=== PATIENT | female | born 1980 | race American Indian/Alaskan Native ===

== ENCOUNTER 2017-06-02 15:03 | Observation (INO) | payer MEDICAID, OTHER ==
[2017-06-02 15:40] LABS: BASO # 0.1 K/uL (0.0-0.2); BASO % 0.9 % (0.0-2.0); EOS # 0.1 K/uL (0.0-0.7); EOS % 1.5 % (0.0-4.0); HEMOGLOBIN 12.7 g/dL (11.0-16.0); LYMPH # 4.2 K/uL (1.0-4.3); LYMPH % 47.7 % (20.0-40.0); MEAN CELL VOLUME 81.8 fL (81.0-99.0); MEAN CORPUSCULAR HEMOGLOBIN 27.5 pg (27.0-31.0); MEAN CORPUSCULAR HGB CONC 33.6 g/dL (33.0-37.0); MEAN PLATELET VOLUME 8.4 fL (7.2-11.7); MONO # 0.7 K/uL (0.0-0.8); MONO % 7.5 % (0.0-10.0); NEUT # 3.7 K/uL (1.8-7.0); NEUT % 42.4 % (50.0-75.0); NRBC % 0.1 % (0.0-2.0); RBC 4.63 Mil/uL (3.80-5.20); RED CELL DISTRIBUTION WIDTH 14.5 % (11.5-14.5); WHITE BLOOD COUNT 8.8 K/uL (4.8-10.8)
[2017-06-02 16:07] LABS: ALB/GLOB RATIO 0.9 (1.0-2.1); ALBUMIN 4.4 g/dL (3.5-5.0); ALT/SGPT 32 U/L (9-52); AST/SGOT 30 U/L (14-36); BLOOD UREA NITROGEN 12 mg/dL (7-17); CALCIUM 8.7 mg/dl (8.6-10.4); GFR AFRICAN-AMERICAN > 60; GFR NON-AFRICAN AMERICAN > 60
[2017-06-02 16:30] LABS: T3 1.72 nmol/L (1.49-2.60)
--- NOTE | 2017-06-02 17:07 | RAD ---
PROCEDURE: CHEST RADIOGRAPH, 1 VIEW HISTORY: chest pain COMPARISON: No prior study for comparison FINDINGS: LUNGS: No evidence of focal infiltrate or consolidation in the lungs. PLEURA: No pneumothorax or pleural fluid seen. CARDIOVASCULAR: Normal. OSSEOUS STRUCTURES: No significant abnormalities. VISUALIZED UPPER ABDOMEN: Normal. OTHER FINDINGS: None. IMPRESSION: No active disease.
--- NOTE | 2017-06-02 17:36 | PCM.RRT ---
<ApolloJaqueline - Last Filed: 06/02/17 17:30> DESIGN COORDINATOR Nurses Assessment - Situation Date: 06/02/17 Time DESIGN COORDINATOR was called: 12:50 DESIGN COORDINATOR Location:: I ICU DESIGN COORDINATOR Reason for Call: Looks Sicker DESIGN COORDINATOR Called By: RN - IV IV Inserted during DESIGN COORDINATOR?: No - Constitutional Appears: Non-toxic, In Acute Distress - Head Head Exam: ATRAUMATIC, NORMAL INSPECTION - Eyes Eye Exam: EOMI - Respiratory Exam Respiratory Exam: Clear to Ausculation Bilateral, NORMAL BREATHING PATTERN. absent: Respiratory Distress - Cardiovascular Exam Cardiovascular Exam: Tachycardia, JVD, +S1, +S2 - GI/Abdominal Exam GI & Abdominal Exam: Soft, Normal Bowel Sounds. absent: Distended, Guarding, Tenderness - Neurological Exam Neurological Exam: Alert, Awake, CN II-XII Intact, Oriented x3 - Extremities Exam Extremities Exam: Normal Inspection Plan - Assessment of Findings&Treatment Plan DESIGN COORDINATOR called at 12:50 PM. 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 She walked into the ICU and told Nurse Santamaria that she did not feel well. Nurse Santamaria felt the patient's pulse and noticed the patient had a very rapid heart rate. DESIGN COORDINATOR was called and the patients HR was taken on the vitals machine and was 210. O2 saturation was 98%. Patient was awake alert and speaking in full sentences. She stated that she felt like she was going to pass out but denied SOB or chest pain. She felt like her heart was racing. Patient was put in a wheel chair and we immediately took to the ED. Patient stated she ate that morning and took her Insulin. She said that she had a episode of a fast heart rate 6 years ago when she was . Upon arrival to the ED, EKG was performed and patient was in SVT. Adenosine was administered and the patient converted to NSR. <Jose Boles - Last Filed: 06/03/17 07:10> Attending/Attestation - Attestation I have personally seen and examined this patient.: Yes I have fully participated in the care of the patient.: Yes I have reviewed all pertinent clinical information, including history, physical exam and plan: Yes Notes (Text): 06/03/17 07:08 Medical attending: Patient was seen and examined by me. Agree with the above note by the resident The patient was already being moved to the ER at the time I came to the ICU. She was alert, awake, and appropriate. Her HR was elevated, and she tells us there is a history of SVT And while at ER she received adenosine thank you Jose Boles
[2017-06-02] MEDS ORDERED: Glucagon Recombinant 1 mg Inj IM PRN (17:38)
[2017-06-02] MEDS ORDERED: Dextrose 50% SYRINGE Inj (50 ml) IV PRN (17:38)
[2017-06-02 18:09] VITALS: O2SAT 98
--- NOTE | 2017-06-02 18:09 | C.PDOC ---
History Of Present Illness 37 y/o female hx 6 years ago of SVT and since then occasional palpations. The patient works in [employer] presents to the ED of rapid response for rapid heart rate. While in the ED the patient is found with SVT. The patient was evaluated by a transformation coach in the past and refused any intervention. The patient denies headaches , chest pain , SOB, and dizziness. Chief Complaint (Nursing): Palpitations History Per: Patient History/Exam Limitations: no limitations Onset/Duration Of Symptoms: Hrs Current Symptoms Are (Timing): Still Present Past Medical History Reviewed: Historical Data, Nursing Documentation, Vital Signs Vital Signs: Last Vital Signs Temp Pulse 108 H 06/02/17 18:00 Resp 14 06/02/17 18:00 BP 133/82 06/02/17 18:00 Pulse Ox 98 06/02/17 18:22 Surgical History: No Surg Hx - [facility] Procedures D & C POST DELIVERY (11/01/12) Family History: States: No Known Family Hx - Social History Hx Alcohol Use: No Hx Substance Use: No - Immunization History Hx Tetanus Toxoid Vaccination: Yes Hx Influenza Vaccination: Yes Hx Pneumococcal Vaccination: Yes Review Of Systems Except As Marked, All Systems Reviewed And Found Negative. Constitutional: Negative for: Fever Cardiovascular: Positive for: Palpitations. Negative for: Chest Pain Respiratory: Negative for: Cough, Shortness of Breath Physical Exam - Physical Exam Appears: Non-toxic, No Acute Distress, Other Skin: Warm, Dry Head: Atraumatic, Normacephalic Eye(s): bilateral: Normal Inspection Oral Mucosa: Moist Neck: Supple Chest: Symmetrical Cardiovascular: Rhythm Irregular, Other (tachycardic) Respiratory: Normal Breath Sounds, No Rales, No Rhonchi, No Wheezing Gastrointestinal/Abdominal: Soft, No Tenderness, No Guarding, No Rebound Extremity: Normal ROM, Capillary Refill (2<sec.) Neurological/Psych: Oriented x3, Normal Speech Gait: Steady ED Course And Treatment - Laboratory Results Result Diagrams: 06/02/17 15:34 06/02/17 15:34 O2 Sat by Pulse Oximetry: 98 (RA) Progress Note: SVT resolved with second dose of Adenosine. Critical care done for 30 minutes. The patient no longer feels any palpation. The patient is advised to have 1-2 day follow up with her PMD for further evaluation. Medical Decision Making Medical Decision Making: Impression: No active disease. Disposition - Disposition Disposition: HOSPITALIZED Disposition Time: 16:40 Condition: FAIR - Clinical Impression Clinical Impression: SVT (supraventricular tachycardia) - Scribe Statement The provider has reviewed the documentation as recorded by the Scribsofy Montez
[2017-06-02] MEDS ORDERED: Potassium Chloride 20 mEq ER Tab PO STA (18:39)
--- NOTE | 2017-06-02 18:43 | CP.PCM.HP ---
History of Present Illness - History of Present Illness History of Present Illness: PGY1 H+P for Dr. Swapnil Arrieta Patient is a 37 year old female with a past medical history of diabetes type 2 on insulin and possible hx of SVT. 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 She was walking in the [place] when she felt her heart to race and she felt like she was going to pass out. She walked into the ICU and told the charge nurse, Hina, that she was not feeling well. Upon feeling the pulse, Hina noticed that the patient had a very accelerated heart rate. An TABLE ATTENDANT was called and the patient was placed on a vital machine monitor. It was discovered that her HR was 210+. Patient was taken directly to ED for further evaluation. During the ED stay, it was discovered that the patient was in SVT. Patient was given 6mg of Adenosine followed by a second dose of 12mg. This caused the rhythm to convert to NSR in the low 100's. The patient stated that this has happened in the past. The first time was approximately 6 years ago when she was . The patient reports that she gets palpitations often but is normally able to take a deep breath and the feeling goes away. This is the longest it has lasted since the first time she noticed 6 years ago. The patient denies any associated chest pain, nausea, vomiting, numbness, tingling, muscle weakness, slurred speech, diarrhea, constipation or abdominal pain. The patient does report that she has a history of headaches and has been having bad headaches the past three to two days. She also states that her vision is has been blurry at times during these intense headaches. The last time she went to see the eye doctor was approximately one year ago and she was told she has 20/20 vision. She does not currently have either a headache or blurry vision. PMD: [place] PMH: IDDM2 and possible hx of SVT PSH: C section x1 Family: hx of DM (father) Social: Denies tobacco, alcohol or illicit drug use Allergies: NKDA Present on Admission - Present on Admission Any Indicators Present on Admission: No Review of Systems - Review of Systems All systems: reviewed and no additional remarkable complaints except (as per HPI ) Past Patient History - Infectious Disease Hx of Infectious Diseases: None - Past Social History Smoking Status: Never Smoked - ENDOCRINE/METABOLIC Hx Diabetes Mellitus Type 1: Yes - PSYCHIATRIC Hx Substance Use: No - SURGICAL HISTORY Hx Surgeries: Yes Hx Section: Yes - ANESTHESIA Hx Anesthesia: No Hx Anesthesia Reactions: No Hx Malignant Hyperthermia: No Meds Allergies/Adverse Reactions: Allergies Allergy/AdvReac Type Severity Reaction Status Date / Time No Known Allergies Allergy Unverified 11/01/12 19:12 Physical Exam - Constitutional Appears: Well, Non-toxic, No Acute Distress - Head Exam Head Exam: ATRAUMATIC, NORMOCEPHALIC - Eye Exam Eye Exam: EOMI, Normal appearance, PERRL - ENT Exam ENT Exam: Mucous Membranes Moist - Neck Exam Neck exam: Positive for: Full Rom, Normal Inspection. Negative for: Tenderness - Respiratory Exam Respiratory Exam: Clear to Auscultation Bilateral, NORMAL BREATHING PATTERN. absent: Accessory Muscle Use, Rales, Rhonchi, Wheezes, Respiratory Distress - Cardiovascular Exam Cardiovascular Exam: REGULAR RHYTHM, +S1. absent: JVD - GI/Abdominal Exam GI & Abdominal Exam: Normal Bowel Sounds, Soft. absent: Distended, Firm, Guarding, Rigid, Tenderness - Extremities Exam Extremities exam: Positive for: normal inspection, pedal pulses present. Negative for: calf tenderness, pedal edema - Neurological Exam Neurological exam: Alert, CN II-XII Intact, Oriented x3 - Psychiatric Exam Psychiatric exam: Normal Affect, Normal Mood - Skin Skin Exam: Dry, Warm Results - Vital Signs Recent Vital Signs: Last Vital Signs Temp Pulse 108 H 06/02/17 18:00 Resp 14 06/02/17 18:00 BP 133/82 06/02/17 18:00 Pulse Ox 98 06/02/17 18:13 - Labs Result Diagrams: 06/02/17 15:34 06/02/17 15:34 Labs: Laboratory Results - last 24 hr 06/02/17 06/02/17 06/02/17 15:26 15:28 15:34 WBC 8.8 D RBC 4.63 Hgb 12.7 Hct 37.9 MCV 81.8 D MCH 27.5 MCHC 33.6 RDW 14.5 Plt Count 353 D MPV 8.4 Neut % (Auto) 42.4 L Lymph % (Auto) 47.7 H [place] % (Auto) 7.5 Eos % (Auto) 1.5 Baso % (Auto) 0.9 Neut # 3.7 Lymph # 4.2 [place] # 0.7 Eos # 0.1 Baso # 0.1 Sodium Potassium Chloride Carbon Dioxide Anion Gap BUN Creatinine Est GFR ( Amer) Est GFR (Non-Af Amer) POC Glucose (mg/dL) 55 L 56 L Random Glucose Calcium Total Bilirubin AST ALT Alkaline Phosphatase Troponin I Total Protein Albumin Globulin Albumin/Globulin Ratio Free T4 Total T3 TSH 3rd Generation 06/02/17 06/02/17 06/02/17 15:34 15:47 16:21 WBC RBC Hgb Hct MCV MCH MCHC RDW Plt Count MPV Neut % (Auto) Lymph % (Auto) [place] % (Auto) Eos % (Auto) Baso % (Auto) Neut # Lymph # [place] # Eos # Baso # Sodium 135 Potassium 3.4 L Chloride 98 Carbon Dioxide 24 Anion Gap 16 BUN 12 Creatinine 0.6 L Est GFR ( Amer) > 60 Est GFR (Non-Af Amer) > 60 POC Glucose (mg/dL) 68 Random Glucose 61 L Calcium 8.7 Total Bilirubin 0.6 AST 30 ALT 32 Alkaline Phosphatase 101 Troponin I < 0.0120 Total Protein 9.2 H Albumin 4.4 Globulin 4.7 H Albumin/Globulin Ratio 0.9 L Free T4 0.98 Total T3 1.72 TSH 3rd Generation 1.28 06/02/17 16:23 WBC RBC Hgb Hct MCV MCH MCHC RDW Plt Count MPV Neut % (Auto) Lymph % (Auto) [place] % (Auto) Eos % (Auto) Baso % (Auto) Neut # Lymph # [place] # Eos # Baso # Sodium Potassium Chloride Carbon Dioxide Anion Gap BUN Creatinine Est GFR ( Amer) Est GFR (Non-Af Amer) POC Glucose (mg/dL) 78 Random Glucose Calcium Total Bilirubin AST ALT Alkaline Phosphatase Troponin I Total Protein Albumin Globulin Albumin/Globulin Ratio Free T4 Total T3 TSH 3rd Generation Assessment & Plan - Assessment and Plan (Free Text) Plan: SVT Cardiology Consult, Dr. Rodriguez SVT @ 210+ on monitor Patient given Adenosine 6mg then 12mg in ED - broke to NSR @110bpm f/u ECHO On telemetry Cardizem 30mg PO q6h TSH 1.28, Free T4 0.98, Total T3 1.72 Trop <0.012 f/u UDS Hypokalemia K 3.4 - repleted with 40mEq oral f/u mag and phos Diabetes Type 2 on insulin Metformin 1,000mg ISS - low Hold home long acting insulin (20 u HS) Hold pre-meal insulin (10 u Humalog TIDAC) Hypoglycemic Protocol f/u Hgb A1c f/u Lipid Panel Prophylactic Care SCDs No GI ppx indicated Mod. Carb Consistent Diet (Heart Healthy, 2gm Na) Case discussed with Dr. Swapnil Martinez Angie PGY1
[2017-06-02] MEDS: (Novolin R) Insulin Human Regular 100 units/ml vial SC SCH (21:55)
[2017-06-03] MEDS: (Novolin R) Insulin Human Regular 100 units/ml vial SC SCH ×2 (07:33→12:30)
[2017-06-03 07:49] LABS: BASO # 0.1 K/uL (0.0-0.2); EOS # 0.1 K/uL (0.0-0.7); EOS % 2.3 % (0.0-4.0); HEMOGLOBIN 12.6 g/dL (11.0-16.0); LYMPH # 1.8 K/uL (1.0-4.3); LYMPH % 36.9 % (20.0-40.0); MEAN CELL VOLUME 81.6 fL (81.0-99.0); MEAN CORPUSCULAR HEMOGLOBIN 27.7 pg (27.0-31.0); MEAN PLATELET VOLUME 8.1 fL (7.2-11.7); MONO # 0.3 K/uL (0.0-0.8); MONO % 7.1 % (0.0-10.0); NEUT # 2.5 K/uL (1.8-7.0); NEUT % 52.7 % (50.0-75.0); NRBC % 0.1 % (0.0-2.0); RBC 4.53 Mil/uL (3.80-5.20); RED CELL DISTRIBUTION WIDTH 14.5 % (11.5-14.5); WHITE BLOOD COUNT 4.8 K/uL (4.8-10.8)
[2017-06-03 08:37] LABS: ALB/GLOB RATIO 1.2 (1.0-2.1); ALBUMIN 3.8 g/dL (3.5-5.0); ALT/SGPT 27 U/L (9-52); AST/SGOT 19 U/L (14-36); BLOOD UREA NITROGEN 12 mg/dL (7-17); CALCIUM 8.3 mg/dl (8.6-10.4); GFR AFRICAN-AMERICAN > 60; GFR NON-AFRICAN AMERICAN > 60; HDL CHOLESTEROL 54 mg/dL (30-70); MAGNESIUM 1.4 mg/dL (1.6-2.3)
[2017-06-03 08:47] LABS: LDL CHOLESTEROL 112 mg/dL (0-129)
[2017-06-03 08:52] VITALS: BP 109/71; PULSE 84; RESP 18; TEMP 97.8
[2017-06-03 09:05] LABS: BARBITURATES, UR NEGATIVE (NEGATIVE); BENZODIAZEPINES, UR NEGATIVE (NEGATIVE); OPIATES, UR NEGATIVE (NEGATIVE); PHENCYCLIDINE, UR NEGATIVE (NEGATIVE)
[2017-06-03] MEDS: Magnesium Sulfate 1 gm in D5W 1 GM/100 ML BAG IVPB SCH ×2 (09:58→10:44)
--- NOTE | 2017-06-03 10:53 | CP.PCM.DIS ---
Provider - Provider Date of Admission: 06/02/17 17:06 Attending physician: Bronwyn Obando MD Primary care physician: Dr. Obando [facility] Course - Lab Results Lab Results: Most Recent Lab Values WBC 4.8 K/uL (4.8-10.8) 06/03/17 07:41 RBC 4.53 Mil/uL (3.80-5.20) 06/03/17 07:41 Hgb 12.6 g/dL (11.0-16.0) 06/03/17 07:41 Hct 37.0 % (34.0-47.0) 06/03/17 07:41 MCV 81.6 fL (81.0-99.0) 06/03/17 07:41 MCH 27.7 pg (27.0-31.0) 06/03/17 07:41 MCHC 34.0 g/dL (33.0-37.0) 06/03/17 07:41 RDW 14.5 % (11.5-14.5) 06/03/17 07:41 Plt Count 291 K/uL (130-400) 06/03/17 07:41 MPV 8.1 fL (7.2-11.7) 06/03/17 07:41 Neut % (Auto) 52.7 % (50.0-75.0) 06/03/17 07:41 Lymph % (Auto) 36.9 % (20.0-40.0) 06/03/17 07:41 [place] % (Auto) 7.1 % (0.0-10.0) 06/03/17 07:41 Eos % (Auto) 2.3 % (0.0-4.0) 06/03/17 07:41 Baso % (Auto) 1.0 % (0.0-2.0) 06/03/17 07:41 Neut # 2.5 K/uL (1.8-7.0) 06/03/17 07:41 Lymph # 1.8 K/uL (1.0-4.3) 06/03/17 07:41 [place] # 0.3 K/uL (0.0-0.8) 06/03/17 07:41 Eos # 0.1 K/uL (0.0-0.7) 06/03/17 07:41 Baso # 0.1 K/uL (0.0-0.2) 06/03/17 07:41 Sodium 133 mmol/L (132-148) 06/03/17 07:41 Potassium 4.1 mmol/L (3.6-5.2) 06/03/17 07:41 Chloride 101 mmol/L (98-107) 06/03/17 07:41 Carbon Dioxide 27 mmol/L (22-30) 06/03/17 07:41 Anion Gap 9 (10-20) L 06/03/17 07:41 BUN 12 mg/dL (7-17) 06/03/17 07:41 Creatinine 0.5 mg/dL (0.7-1.2) L 06/03/17 07:41 Est GFR ( Amer) > 60 06/03/17 07:41 Est GFR (Non-Af Amer) > 60 06/03/17 07:41 POC Glucose (mg/dL) 130 mg/dL (65-110) H 06/03/17 06:09 Random Glucose 148 mg/dL (65-105) H 06/03/17 07:41 Hemoglobin A1c 6.8 % (4.2-6.5) H 06/02/17 17:20 Calcium 8.3 mg/dl (8.6-10.4) L 06/03/17 07:41 Phosphorus 3.0 mg/dL (2.5-4.5) 06/03/17 07:41 Magnesium 1.4 mg/dL (1.6-2.3) L 06/03/17 07:41 Total Bilirubin 0.4 mg/dL (0.2-1.3) 06/03/17 07:41 AST 19 U/L (14-36) 06/03/17 07:41 ALT 27 U/L (9-52) 06/03/17 07:41 Alkaline Phosphatase 101 U/L (38-126) 06/03/17 07:41 Troponin I < 0.0120 ng/mL (0.00-0.120) 06/02/17 15:34 Total Protein 7.0 g/dL (6.3-8.3) 06/03/17 07:41 Albumin 3.8 g/dL (3.5-5.0) 06/03/17 07:41 Globulin 3.2 gm/dL (2.2-3.9) 06/03/17 07:41 Albumin/Globulin Ratio 1.2 (1.0-2.1) 06/03/17 07:41 Triglycerides 103 mg/dL (0-149) 06/03/17 07:41 Cholesterol 190 mg/dL (0-199) 06/03/17 07:41 LDL Cholesterol Direct 112 mg/dL (0-129) 06/03/17 07:41 HDL Cholesterol 54 mg/dL (30-70) 06/03/17 07:41 Free T4 0.98 ng/dL (0.78-2.19) 06/02/17 15:47 Total T3 1.72 nmol/L (1.49-2.60) 06/02/17 15:34 TSH 3rd Generation 1.28 mIU/L (0.46-4.68) 06/02/17 15:34 Urine Opiates Screen Negative (NEGATIVE) 06/03/17 07:49 Urine Methadone Screen Negative (NEGATIVE) 06/03/17 07:49 Ur Barbiturates Screen Negative (NEGATIVE) 06/03/17 07:49 Ur Phencyclidine Scrn Negative (NEGATIVE) 06/03/17 07:49 Ur Amphetamines Screen Negative (NEGATIVE) 06/03/17 07:49 U Benzodiazepines Scrn Negative (NEGATIVE) 06/03/17 07:49 U Oth Cocaine Metabols Negative (NEGATIVE) 06/03/17 07:49 U Cannabinoids Screen Negative (NEGATIVE) 06/03/17 07:49 Discharge Exam - Head Exam Head Exam: ATRAUMATIC, NORMOCEPHALIC Discharge Plan - Follow Up Plan Condition: FAIR Disposition: HOME/ ROUTINE
--- NOTE | 2017-06-03 11:01 | CP.PCM.CON ---
History of Present Illness - History of Present Illness History of Present Illness: I was asked to see patient by Dr Obando. Patient is a 37 year old female with PMH HTN DM who presents with SVT. The patient was working when she developed palpitations. She was found to be tachycardic. The patient was in SVT. She was given adenosine, and eventually returned to sinus rhythm. She is currently on cardizem. Review of Systems - Constitutional Constitutional: absent: As Per HPI, Anorexia, Chills, Daytime Sleepiness, Excessive Sweating, Fatigue, Fever, Frequent Falls, Headache, Increased Appetite , Lethargy, Malaise, Night Sweats, Snoring, Sleep Apnea, Weight Gain, Weight Loss, Weakness, Other - EENT Eyes: absent: As Per HPI, Blind Spots, Blurred Vision, Change in Vision, Decreased Night Vision, Diplopia, Discharge, Dry Eye, Exophthalmos, Floaters, Irritation, Itchy Eyes, Loss of Peripheral Vision, Pain, Photophobia, Requires Corrective Lenses, Sees Flashes, Spots in Vision, Tunnel Vision, Other Visual Disturbances, Loss of Vision, Other Ears: absent: As Per HPI, Decreased Hearing, Ear Discharge, Ear Pain, Tinnitus, Abnormal Hearing, Disequilibrium, Dizziness, Other Nose/Mouth/Throat: absent: As Per HPI, Epistaxis, Nasal Congestion, Nasal Discharge, Nasal Obstruction, Nasal Trauma, Nose Pain, Post Nasal Drip, Sinus Pain, Sinus Pressure, Bleeding Gums, Change in Voice, Dental Pain, Dry Mouth, Dysphagia, Halitosis, Hoarsness, Lip Swelling, Mouth Lesions, Mouth Pain, Odynophagia, Sore Throat, Throat Swelling, Tongue Swelling, Facial Pain, Neck Pain, Neck Mass, Other - Breasts Breasts: absent: As Per HPI, Change in Shape, Mass, Pain, Nipple Discharge, Nipple Inversion, Skin Changes, Swelling, Other - Cardiovascular Cardiovascular: Palpitations - Respiratory Respiratory: absent: As Per HPI, Cough, Dyspnea, Hemoptysis, Dyspnea on Exertion , Wheezing, Snoring, Stridor, Pain on Inspiration, Chest Congestion, Excessive Mucous Production, Change in Mucous Color, Pain with Coughing, Other - Gastrointestinal Gastrointestinal: absent: As Per HPI, Abdominal Pain, Belching, Bloating, Change in Bowel Habits, Change in Stool Character, Coffee Ground Emesis, Constipation, Cramping, Diarrhea, Dyspepsia, Dysphagia, Early Satiety, Excessive Flatus, Fecal Incontinence, Heartburn, Hematemesis, Hematochezia, Loose Stools, Melena, Nausea, Odynophagia, Temesmus, Vomiting, Other - Genitourinary Genitourinary: absent: As Per HPI, Change in Urinary Stream, Difficulty Urinating, Dysuria, Flank Pain, Hematuria, Pyuria, Nocturia, Urinary Incontinence, Urinary Frequency, Urinary Hesitance, Urinary Urgency, Voiding Freq/Small Amts, Freq UTI, Hx Renal/Bladder Calculi, Hx /Renal Surgery, Bladder Distension, Other - Musculoskeletal Musculoskeletal: absent: As Per HPI, Abnormal Gait, Arthralgias, Atrophy, Back Pain, Deformity, Joint Swelling, Limited Range of Motion, Loss of Height, Muscle Cramps, Muscle Weakness, Myalgias, Neck Pain, Numbness, Radiating Pain into Limb, Stiffness, Tingling, Other - Integumentary Integumentary: absent: As Per HPI, Acne, Alopecia, Bleeding Lesions, Change in Hair, Change in Nails, Change in Pigmentation, Changing Lesions, Dry Skin, Erythema, Furuncle, Hirsutism, Lesions, New Lesions, Non-Healing Lesions, Photosensitivity, Pruritus, Rash, Skin Pain, Skin Ulcer, Sores, Striae, Swelling , Unusual Bruising, Wounds, Jaundice, Other - Neurological Neurological: absent: As Per HPI, Abnormal Gait, Abnormal Hearing, Abnormal Movements, Abnormal Speech, Behavioral Changes, Burning Sensations, Confusion, Convulsions, Disequilibrium, Dizziness, Numbness, Focal Weakness, Frequent Falls , Headaches, Lack of Coordination, Loss of Vision, Memory Loss, Paresthesias, Radicular Pain, Restless Legs, Sensory Deficit, Syncope, Tingling, Tremor, Vertigo, Weakness, Other Visual Disturbances, Other - Psychiatric Psychiatric: absent: As Per HPI, Abnormal Sleep Pattern, Anhedonia, Anxiety, Auditory Hallucinations, Behavioral Changes, Change in Appetite, Change in Libido, Confusion, Depression, Difficulty Concentrating, Hallucinations, Homicidal Ideation, Hopelessness, Irritability, Memory Loss, Mood Swings, Panic Attacks, Paranoia, Suicidal Ideation, Visual Hallucinations, Tactile Hallucinations, Other - Endocrine Endocrine: absent: As Per HPI, Change in Body Appearance, Change in Libido, Cold Intolorance, Deepening of Voice, Excessive Sweating, Fatigue, Flushing, Heat Intolorance, Increase in Ring/Shoe/Hat Size, Palpitations, Polydipsia, Polyphagia, Polyuria, Other - Hematologic/Lymphatic Hematologic: absent: As Per HPI, Easy Bleeding, Easy Bruising, Lymphadenopathy, Other Past Patient History - Infectious Disease Hx of Infectious Diseases: None - Past Social History Smoking Status: Never Smoked - ENDOCRINE/METABOLIC Hx Diabetes Mellitus Type 1: Yes - PSYCHIATRIC Hx Substance Use: No - SURGICAL HISTORY Hx Surgeries: Yes Hx Section: Yes - ANESTHESIA Hx Anesthesia: No Hx Anesthesia Reactions: No Hx Malignant Hyperthermia: No Meds Allergies/Adverse Reactions: Allergies Allergy/AdvReac Type Severity Reaction Status Date / Time No Known Allergies Allergy Unverified 11/01/12 19:12 - Medications Medications: Current Medications Dextrose (Dextrose 50% Inj) 0 ml IV STAT PRN; Protocol PRN Reason: Hypoglycemia Protocol Dextrose (Glutose 15) 0 gm PO ONCE PRN; Protocol PRN Reason: Hypoglycemia Protocol Diltiazem HCl (Cardizem) 30 mg PO Q6H [facility] Last Admin: 06/03/17 06:04 Dose: 30 mg Glucagon (Glucagen Diagnostic Kit) 0 mg IM STAT PRN; Protocol PRN Reason: Hypoglycemia Protocol Dextrose (Dextrose 5% In Water 1000 Ml) 1,000 mls @ 0 mls/hr IV .Q0M PRN; Protocol; Per Protocol PRN Reason: Hypoglycemia Protocol Insulin Human Regular (Novolin R) 0 unit SC ACHS [facility] PRN Reason: Protocol Last Admin: 06/03/17 07:33 Dose: Not Given Metformin HCl (Glucophage) 1,000 mg PO BID [facility] Last Admin: 06/03/17 09:58 Dose: 1,000 mg Physical Exam - Constitutional Appears: Non-toxic - Head Exam Head Exam: NORMAL INSPECTION - Eye Exam Eye Exam: Normal appearance - ENT Exam ENT Exam: Mucous Membranes Moist - Neck Exam Neck exam: Positive for: Normal Inspection - Respiratory Exam Respiratory Exam: NORMAL BREATHING PATTERN - Cardiovascular Exam Cardiovascular Exam: REGULAR RHYTHM - GI/Abdominal Exam GI & Abdominal Exam: Normal Bowel Sounds - Rectal Exam Rectal Exam: Deferred - Extremities Exam Extremities exam: Negative for: pedal edema - Back Exam Back exam: NORMAL INSPECTION - Neurological Exam Neurological exam: Alert, Oriented x3 - Psychiatric Exam Psychiatric exam: Normal Affect - Skin Skin Exam: Normal Color Results - Vital Signs Recent Vital Signs: Last Vital Signs Temp 97.8 F 12/31/17 07:20 Pulse 84 06/03/17 07:20 Resp 18 06/03/17 07:20 BP 109/71 06/03/17 07:20 Pulse Ox 98 06/03/17 07:46 - Labs Result Diagrams: 06/03/17 07:41 06/03/17 07:41 Labs: Laboratory Results - last 24 hr 06/02/17 06/02/17 06/02/17 15:26 15:28 15:34 WBC 8.8 D RBC 4.63 Hgb 12.7 Hct 37.9 MCV 81.8 D MCH 27.5 MCHC 33.6 RDW 14.5 Plt Count 353 D MPV 8.4 Neut % (Auto) 42.4 L Lymph % (Auto) 47.7 H Boundary % (Auto) 7.5 Eos % (Auto) 1.5 Baso % (Auto) 0.9 Neut # 3.7 Lymph # 4.2 Boundary # 0.7 Eos # 0.1 Baso # 0.1 Sodium Potassium Chloride Carbon Dioxide Anion Gap BUN Creatinine Est GFR ( Amer) Est GFR (Non-Af Amer) POC Glucose (mg/dL) 55 L 56 L Random Glucose Hemoglobin A1c Calcium Phosphorus Magnesium Total Bilirubin AST ALT Alkaline Phosphatase Troponin I Total Protein Albumin Globulin Albumin/Globulin Ratio Triglycerides Cholesterol LDL Cholesterol Direct HDL Cholesterol Free T4 Total T3 TSH 3rd Generation Urine Opiates Screen Urine Methadone Screen Ur Barbiturates Screen Ur Phencyclidine Scrn Ur Amphetamines Screen U Benzodiazepines Scrn U Oth Cocaine Metabols U Cannabinoids Screen 06/02/17 06/02/17 06/02/17 15:34 15:47 16:21 WBC RBC Hgb Hct MCV MCH MCHC RDW Plt Count MPV Neut % (Auto) Lymph % (Auto) Boundary % (Auto) Eos % (Auto) Baso % (Auto) Neut # Lymph # Boundary # Eos # Baso # Sodium 135 Potassium 3.4 L Chloride 98 Carbon Dioxide 24 Anion Gap 16 BUN 12 Creatinine 0.6 L Est GFR ( Amer) > 60 Est GFR (Non-Af Amer) > 60 POC Glucose (mg/dL) 68 Random Glucose 61 L Hemoglobin A1c Calcium 8.7 Phosphorus Magnesium Total Bilirubin 0.6 AST 30 ALT 32 Alkaline Phosphatase 101 Troponin I < 0.0120 Total Protein 9.2 H Albumin 4.4 Globulin 4.7 H Albumin/Globulin Ratio 0.9 L Triglycerides Cholesterol LDL Cholesterol Direct HDL Cholesterol Free T4 0.98 Total T3 1.72 TSH 3rd Generation 1.28 Urine Opiates Screen Urine Methadone Screen Ur Barbiturates Screen Ur Phencyclidine Scrn Ur Amphetamines Screen U Benzodiazepines Scrn U Oth Cocaine Metabols U Cannabinoids Screen 06/02/17 06/02/17 06/02/17 16:23 17:20 21:27 WBC RBC Hgb Hct MCV MCH MCHC RDW Plt Count MPV Neut % (Auto) Lymph % (Auto) Boundary % (Auto) Eos % (Auto) Baso % (Auto) Neut # Lymph # Boundary # Eos # Baso # Sodium Potassium Chloride Carbon Dioxide Anion Gap BUN Creatinine Est GFR ( Amer) Est GFR (Non-Af Amer) POC Glucose (mg/dL) 78 76 Random Glucose Hemoglobin A1c 6.8 H Calcium Phosphorus Magnesium Total Bilirubin AST ALT Alkaline Phosphatase Troponin I Total Protein Albumin Globulin Albumin/Globulin Ratio Triglycerides Cholesterol LDL Cholesterol Direct HDL Cholesterol Free T4 Total T3 TSH 3rd Generation Urine Opiates Screen Urine Methadone Screen Ur Barbiturates Screen Ur Phencyclidine Scrn Ur Amphetamines Screen U Benzodiazepines Scrn U Oth Cocaine Metabols U Cannabinoids Screen 06/03/17 06/03/17 06/03/17 06:09 07:41 07:41 WBC 4.8 RBC 4.53 Hgb 12.6 Hct 37.0 MCV 81.6 MCH 27.7 MCHC 34.0 RDW 14.5 Plt Count 291 MPV 8.1 Neut % (Auto) 52.7 Lymph % (Auto) 36.9 Boundary % (Auto) 7.1 Eos % (Auto) 2.3 Baso % (Auto) 1.0 Neut # 2.5 Lymph # 1.8 Boundary # 0.3 Eos # 0.1 Baso # 0.1 Sodium 133 Potassium 4.1 Chloride 101 Carbon Dioxide 27 Anion Gap 9 L BUN 12 Creatinine 0.5 L Est GFR ( Amer) > 60 Est GFR (Non-Af Amer) > 60 POC Glucose (mg/dL) 130 H Random Glucose 148 H Hemoglobin A1c Calcium 8.3 L Phosphorus 3.0 Magnesium 1.4 L Total Bilirubin 0.4 AST 19 ALT 27 Alkaline Phosphatase 101 Troponin I Total Protein 7.0 Albumin 3.8 Globulin 3.2 Albumin/Globulin Ratio 1.2 Triglycerides 103 Cholesterol 190 LDL Cholesterol Direct 112 HDL Cholesterol 54 Free T4 Total T3 TSH 3rd Generation Urine Opiates Screen Urine Methadone Screen Ur Barbiturates Screen Ur Phencyclidine Scrn Ur Amphetamines Screen U Benzodiazepines Scrn U Oth Cocaine Metabols U Cannabinoids Screen 06/03/17 07:49 WBC RBC Hgb Hct MCV MCH MCHC RDW Plt Count MPV Neut % (Auto) Lymph % (Auto) Boundary % (Auto) Eos % (Auto) Baso % (Auto) Neut # Lymph # Boundary # Eos # Baso # Sodium Potassium Chloride Carbon Dioxide Anion Gap BUN Creatinine Est GFR ( Amer) Est GFR (Non-Af Amer) POC Glucose (mg/dL) Random Glucose Hemoglobin A1c Calcium Phosphorus Magnesium Total Bilirubin AST ALT Alkaline Phosphatase Troponin I Total Protein Albumin Globulin Albumin/Globulin Ratio Triglycerides Cholesterol LDL Cholesterol Direct HDL Cholesterol Free T4 Total T3 TSH 3rd Generation Urine Opiates Screen Negative Urine Methadone Screen Negative Ur Barbiturates Screen Negative Ur Phencyclidine Scrn Negative Ur Amphetamines Screen Negative U Benzodiazepines Scrn Negative U Oth Cocaine Metabols Negative U Cannabinoids Screen Negative - EKG Data EKG Interpreted by: Myself EKG shows normal: Sinus rhythm Assessment & Plan (1) SVT (supraventricular tachycardia) Assessment and Plan: Sebastien AVNRT. patient is currently in sinus rhythm. I recommend d/c home today on cardizem. I have extensively discussed ablation. Patient is in agreement. I will schedule outpatient with Dr. Mauricio. Status: Acute
--- NOTE | 2017-06-03 12:26 | CP.PCM.DIS ---
<Jaqueline Bustillos - Last Filed: 06/03/17 12:23> Provider - Provider Date of Admission: 06/02/17 17:06 Attending physician: Bronwyn Obando MD Primary care physician: Dr. Obando Consults: Dr. Rodriguez - cardiology Time Spent in preparation of Discharge (in minutes): 35 Diagnosis - Discharge Diagnosis (1) SVT (supraventricular tachycardia) Status: Acute (2) Diabetes Status: Acute Hospital Course - Lab Results Lab Results: Most Recent Lab Values WBC 4.8 K/uL (4.8-10.8) 06/03/17 07:41 RBC 4.53 Mil/uL (3.80-5.20) 06/03/17 07:41 Hgb 12.6 g/dL (11.0-16.0) 06/03/17 07:41 Hct 37.0 % (34.0-47.0) 06/03/17 07:41 MCV 81.6 fL (81.0-99.0) 06/03/17 07:41 MCH 27.7 pg (27.0-31.0) 06/03/17 07:41 MCHC 34.0 g/dL (33.0-37.0) 06/03/17 07:41 RDW 14.5 % (11.5-14.5) 06/03/17 07:41 Plt Count 291 K/uL (130-400) 06/03/17 07:41 MPV 8.1 fL (7.2-11.7) 06/03/17 07:41 Neut % (Auto) 52.7 % (50.0-75.0) 06/03/17 07:41 Lymph % (Auto) 36.9 % (20.0-40.0) 06/03/17 07:41 Foster % (Auto) 7.1 % (0.0-10.0) 06/03/17 07:41 Eos % (Auto) 2.3 % (0.0-4.0) 06/03/17 07:41 Baso % (Auto) 1.0 % (0.0-2.0) 06/03/17 07:41 Neut # 2.5 K/uL (1.8-7.0) 06/03/17 07:41 Lymph # 1.8 K/uL (1.0-4.3) 06/03/17 07:41 Foster # 0.3 K/uL (0.0-0.8) 06/03/17 07:41 Eos # 0.1 K/uL (0.0-0.7) 06/03/17 07:41 Baso # 0.1 K/uL (0.0-0.2) 06/03/17 07:41 Sodium 133 mmol/L (132-148) 06/03/17 07:41 Potassium 4.1 mmol/L (3.6-5.2) 06/03/17 07:41 Chloride 101 mmol/L (98-107) 06/03/17 07:41 Carbon Dioxide 27 mmol/L (22-30) 06/03/17 07:41 Anion Gap 9 (10-20) L 06/03/17 07:41 BUN 12 mg/dL (7-17) 06/03/17 07:41 Creatinine 0.5 mg/dL (0.7-1.2) L 06/03/17 07:41 Est GFR ( Amer) > 60 06/03/17 07:41 Est GFR (Non-Af Amer) > 60 06/03/17 07:41 POC Glucose (mg/dL) 192 mg/dL (65-110) H 06/03/17 11:48 Random Glucose 148 mg/dL (65-105) H 06/03/17 07:41 Hemoglobin A1c 6.8 % (4.2-6.5) H 06/02/17 17:20 Calcium 8.3 mg/dl (8.6-10.4) L 06/03/17 07:41 Phosphorus 3.0 mg/dL (2.5-4.5) 06/03/17 07:41 Magnesium 1.4 mg/dL (1.6-2.3) L 06/03/17 07:41 Total Bilirubin 0.4 mg/dL (0.2-1.3) 06/03/17 07:41 AST 19 U/L (14-36) 06/03/17 07:41 ALT 27 U/L (9-52) 06/03/17 07:41 Alkaline Phosphatase 101 U/L (38-126) 06/03/17 07:41 Troponin I < 0.0120 ng/mL (0.00-0.120) 06/02/17 15:34 Total Protein 7.0 g/dL (6.3-8.3) 06/03/17 07:41 Albumin 3.8 g/dL (3.5-5.0) 06/03/17 07:41 Globulin 3.2 gm/dL (2.2-3.9) 06/03/17 07:41 Albumin/Globulin Ratio 1.2 (1.0-2.1) 06/03/17 07:41 Triglycerides 103 mg/dL (0-149) 06/03/17 07:41 Cholesterol 190 mg/dL (0-199) 06/03/17 07:41 LDL Cholesterol Direct 112 mg/dL (0-129) 06/03/17 07:41 HDL Cholesterol 54 mg/dL (30-70) 06/03/17 07:41 Free T4 0.98 ng/dL (0.78-2.19) 06/02/17 15:47 Total T3 1.72 nmol/L (1.49-2.60) 06/02/17 15:34 TSH 3rd Generation 1.28 mIU/L (0.46-4.68) 06/02/17 15:34 Urine Opiates Screen Negative (NEGATIVE) 06/03/17 07:49 Urine Methadone Screen Negative (NEGATIVE) 06/03/17 07:49 Ur Barbiturates Screen Negative (NEGATIVE) 06/03/17 07:49 Ur Phencyclidine Scrn Negative (NEGATIVE) 06/03/17 07:49 Ur Amphetamines Screen Negative (NEGATIVE) 06/03/17 07:49 U Benzodiazepines Scrn Negative (NEGATIVE) 06/03/17 07:49 U Oth Cocaine Metabols Negative (NEGATIVE) 06/03/17 07:49 U Cannabinoids Screen Negative (NEGATIVE) 06/03/17 07:49 - Hospital Course Hospital Course: On admission: Patient is a 37 year old female with a past medical history of diabetes type 2 on insulin and possible hx of SVT. 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 She was walking in the [place] when she felt her heart to race and she felt like she was going to pass out. She walked into the ICU and told the charge nurse, Hina, that she was not feeling well. Upon feeling the pulse, Hina noticed that the patient had a very accelerated heart rate. An [employer] was called and the patient was placed on a vital machine monitor. It was discovered that her HR was 210+. Patient was taken directly to ED for further evaluation. During the ED stay, it was discovered that the patient was in SVT. Patient was given 6mg of Adenosine followed by a second dose of 12mg. This caused the rhythm to convert to NSR in the low 100's. The patient stated that this has happened in the past. The first time was approximately 6 years ago when she was . The patient reports that she gets palpitations often but is normally able to take a deep breath and the feeling goes away. This is the longest it has lasted since the first time she noticed 6 years ago. The patient denies any associated chest pain, nausea, vomiting, numbness, tingling, muscle weakness, slurred speech, diarrhea, constipation or abdominal pain. The patient does report that she has a history of headaches and has been having bad headaches the past three to two days. She also states that her vision is has been blurry at times during these intense headaches. The last time she went to see the eye doctor was approximately one year ago and she was told she has 20/ 20 vision. She does not currently have either a headache or blurry vision. During hospital stay: Cardiology was consulted. Patient was put on oral cardizem and her heart rate remained stable in the 80s. Patients symptoms resolved. Patient is stable for discharge home. Please see below: 1. Please follow up with Dr. Obando with one week of discharge. Please request and endocrine consult at your visit for diabetes management. 2. Please follow up with Dr. Rodriguez (cardiology) within one week of discharge. 3. Please take the following medications: 1. Metformin 1000mg by mouth twice a day. Please take with breakfast and dinner. 2. Lisionpril 2.5 mg by mouth once a day with dinner. Disp #30 (for renal protection) 3. Atorvastatin 10mg by mouth once a day with dinner. Disp #30 (for cardiac protection) 4. Cardizem 120mg by mouth once a day with breakfast. Diap #30 5. Short Acting Insulin 5. Please do not take your long acting Insulin at bedtime in order to avoid events of low blood sugar 6. Please check you sugars before breakfast, lunch, and dinner and create a log of your sugars. Administer your short acting Insulin according to your blood sugar numbers: 150-199 - give 2 U 200-249 - give 4 U 250-299 - give 6 U 300-349 - give 8 U 350-399 - give 10 U 400-449 - give 12 U 450-449 - give 14 U 7. Please bring your sugar logs to your visit with Dr. Obando 8. Patient is to return to the emergency room if symptoms return. Discharge Exam - Head Exam Head Exam: NORMAL INSPECTION - Eye Exam Eye Exam: EOMI, PERRL Pupil Exam: NORMAL ACCOMODATION - Respiratory Exam Respiratory Exam: Clear to PA & Lateral, NORMAL BREATHING PATTERN. absent: Rhonchi, Wheezes, Respiratory Distress, Stridor - Cardiovascular Exam Cardiovascular Exam: REGULAR RHYTHM, +S1, +S2. absent: Tachycardia, Diastolic murmur, Gallop, Irregular Rhythm, JVD, Systolic Murmur - GI/Abdominal Exam GI & Abdominal Exam: Normal Bowel Sounds, Soft. absent: Distended, Firm, Guarding, Tenderness - Extremities Exam Extremities exam: normal inspection - Back Exam Back exam: NORMAL INSPECTION. absent: CVA tenderness (L), CVA tenderness (R), paraspinal tenderness - Neurological Exam Neurological exam: Alert, CN II-XII Intact, Normal Gait, Oriented x3 - Psychiatric Exam Psychiatric exam: Normal Affect, Normal Mood - Skin Skin Exam: Dry, Intact, Normal Color, Warm Discharge Plan - Discharge Medications Prescriptions: Atorvastatin [Lipitor] 10 mg PO DIN #30 tab diltiaZEM [Cardizem] 120 mg PO DAILY 30 Days #30 tab Lisinopril 2.5 mg PO DAILY #30 tablet MetFORMIN [glucoPHAGE] 1 tab PO BID #60 tab - Follow Up Plan Condition: FAIR Disposition: HOME/ ROUTINE Instructions: Diltiazem (By mouth), Lisinopril (By mouth), Metformin (By mouth) , Atorvastatin (By mouth), Supraventricular Tachycardia (DC), Heart Healthy Diet (DC), Cardiac Ablation (DC) Additional Instructions: Patient is stable for discharge home. Please see below: 1. Please follow up with Dr. Obando with one week of discharge. Please request and endocrine consult at your visit for diabetes management. 2. Please follow up with Dr. Rodriguez (cardiology) within one week of discharge. 3. Please take the following medications: 1. Metformin 1000mg by mouth twice a day. Please take with breakfast and dinner. 2. Lisionpril 2.5 mg by mouth once a day with dinner. Disp #30 (for renal protection) 3. Atorvastatin 10mg by mouth once a day with dinner. Disp #30 (for cardiac protection) 4. Cardizem 120mg by mouth once a day with breakfast. Diap #30 5. Short Acting Insulin 5. Please do not take your long acting Insulin at bedtime in order to avoid events of low blood sugar 6. Please check you sugars before breakfast, lunch, and dinner and create a log of your sugars. Administer your short acting Insulin according to your blood sugar numbers: 150-199 - give 2 U 200-249 - give 4 U 250-299 - give 6 U 300-349 - give 8 U 350-399 - give 10 U 400-449 - give 12 U 450-449 - give 14 U 7. Please bring your sugar logs to your visit with Dr. Obando 8. Patient is to return to the emergency room if symptoms return. Referrals: Bronwyn Obando MD [Staff Provider] - 1 Week Israel Rodriguez MD [Staff Provider] - 1 Week <Shmuel Arrieta - Last Filed: 06/03/17 18:21> Provider - Provider Date of Admission: 06/02/17 17:06 Attending physician: Bronwyn Obando MD Hospital Course - Lab Results Lab Results: Most Recent Lab Values WBC 4.8 K/uL (4.8-10.8) 06/03/17 07:41 RBC 4.53 Mil/uL (3.80-5.20) 06/03/17 07:41 Hgb 12.6 g/dL (11.0-16.0) 06/03/17 07:41 Hct 37.0 % (34.0-47.0) 06/03/17 07:41 MCV 81.6 fL (81.0-99.0) 06/03/17 07:41 MCH 27.7 pg (27.0-31.0) 06/03/17 07:41 MCHC 34.0 g/dL (33.0-37.0) 06/03/17 07:41 RDW 14.5 % (11.5-14.5) 06/03/17 07:41 Plt Count 291 K/uL (130-400) 06/03/17 07:41 MPV 8.1 fL (7.2-11.7) 06/03/17 07:41 Neut % (Auto) 52.7 % (50.0-75.0) 06/03/17 07:41 Lymph % (Auto) 36.9 % (20.0-40.0) 06/03/17 07:41 Foster % (Auto) 7.1 % (0.0-10.0) 06/03/17 07:41 Eos % (Auto) 2.3 % (0.0-4.0) 06/03/17 07:41 Baso % (Auto) 1.0 % (0.0-2.0) 06/03/17 07:41 Neut # 2.5 K/uL (1.8-7.0) 06/03/17 07:41 Lymph # 1.8 K/uL (1.0-4.3) 06/03/17 07:41 Foster # 0.3 K/uL (0.0-0.8) 06/03/17 07:41 Eos # 0.1 K/uL (0.0-0.7) 06/03/17 07:41 Baso # 0.1 K/uL (0.0-0.2) 06/03/17 07:41 Sodium 133 mmol/L (132-148) 06/03/17 07:41 Potassium 4.1 mmol/L (3.6-5.2) 06/03/17 07:41 Chloride 101 mmol/L (98-107) 06/03/17 07:41 Carbon Dioxide 27 mmol/L (22-30) 06/03/17 07:41 Anion Gap 9 (10-20) L 06/03/17 07:41 BUN 12 mg/dL (7-17) 06/03/17 07:41 Creatinine 0.5 mg/dL (0.7-1.2) L 06/03/17 07:41 Est GFR ( Amer) > 60 06/03/17 07:41 Est GFR (Non-Af Amer) > 60 06/03/17 07:41 POC Glucose (mg/dL) 192 mg/dL (65-110) H 06/03/17 11:48 Random Glucose 148 mg/dL (65-105) H 06/03/17 07:41 Hemoglobin A1c 6.8 % (4.2-6.5) H 06/02/17 17:20 Calcium 8.3 mg/dl (8.6-10.4) L 06/03/17 07:41 Phosphorus 3.0 mg/dL (2.5-4.5) 06/03/17 07:41 Magnesium 1.4 mg/dL (1.6-2.3) L 06/03/17 07:41 Total Bilirubin 0.4 mg/dL (0.2-1.3) 06/03/17 07:41 AST 19 U/L (14-36) 06/03/17 07:41 ALT 27 U/L (9-52) 06/03/17 07:41 Alkaline Phosphatase 101 U/L (38-126) 06/03/17 07:41 Troponin I < 0.0120 ng/mL (0.00-0.120) 06/02/17 15:34 Total Protein 7.0 g/dL (6.3-8.3) 06/03/17 07:41 Albumin 3.8 g/dL (3.5-5.0) 06/03/17 07:41 Globulin 3.2 gm/dL (2.2-3.9) 06/03/17 07:41 Albumin/Globulin Ratio 1.2 (1.0-2.1) 06/03/17 07:41 Triglycerides 103 mg/dL (0-149) 06/03/17 07:41 Cholesterol 190 mg/dL (0-199) 06/03/17 07:41 LDL Cholesterol Direct 112 mg/dL (0-129) 06/03/17 07:41 HDL Cholesterol 54 mg/dL (30-70) 06/03/17 07:41 Free T4 0.98 ng/dL (0.78-2.19) 06/02/17 15:47 Total T3 1.72 nmol/L (1.49-2.60) 06/02/17 15:34 TSH 3rd Generation 1.28 mIU/L (0.46-4.68) 06/02/17 15:34 Urine Opiates Screen Negative (NEGATIVE) 06/03/17 07:49 Urine Methadone Screen Negative (NEGATIVE) 06/03/17 07:49 Ur Barbiturates Screen Negative (NEGATIVE) 06/03/17 07:49 Ur Phencyclidine Scrn Negative (NEGATIVE) 06/03/17 07:49 Ur Amphetamines Screen Negative (NEGATIVE) 06/03/17 07:49 U Benzodiazepines Scrn Negative (NEGATIVE) 06/03/17 07:49 U Oth Cocaine Metabols Negative (NEGATIVE) 06/03/17 07:49 U Cannabinoids Screen Negative (NEGATIVE) 06/03/17 07:49 Attending/Attestation - Attestation I have personally seen and examined this patient.: Yes I have fully participated in the care of the patient.: Yes I have reviewed all pertinent clinical information, including history, physical exam and plan: Yes Notes (Text): 06/03/17 18:20 Patient was seen and examined shortly after resident. Exam, assessment and plan, discharge instructions were thoroughly gone over with the resident. Shmuel Arrieta D.O.
--- NOTE | 2017-06-05 12:39 | CARD ---
APPROVED REPORT EKG Measurement Heart [id number] MI [id number] <Conclusion> Sinus tachycardia Possible Left atrial enlargement Nonspecific ST abnormality Abnormal ECG
== END 2017-06-03 14:46 | disposition home or self-care (01) ==
LOC: C.ER 15:03 → C.9E 17:06 → C.6T 17:40
PROVIDERS: ADMIT Hospitalist; ATTEND Internal Medicine Pulmonary Disease
DX: I47.1 Supraventricular tachycardia (principal); E10.9 Type 1 diabetes mellitus without complications; I10 Essential (primary) hypertension; Z79.4 Long term (current) use of insulin
CPT/HCPCS: 36415; 71010; 80053; 80061; 80324; 80345; 80346; 80349; 80353; 80358; 80361; 82948; 83036; 83735; 83992; 84100; 84439; 84443; 84480; 84484; 85025; 93005; 96365; 96375; 99285; G0378; J0153; J3475

== ENCOUNTER 2017-06-10 00:02 | Inpatient (IN) | payer MEDICAID ==
--- NOTE | 2017-06-10 00:10 | C.PDOC ---
History Of Present Illness Patient presents with chest discomfort radiating to the left shoulder and arm. Symptoms started around 4 pm. Discomfort was dull, aching . Patient states she is pain free now. She was admitted 8 days ago for SVT . Time Seen by Provider: 06/10/17 00:10 Chief Complaint (Nursing): Chest Pain History Per: Patient History/Exam Limitations: no limitations Onset/Duration Of Symptoms: Hrs (8) Current Symptoms Are (Timing): Still Present Context: Other Severity: Moderate Pain Scale Rating Of: 4 Quality: Dull, Aching Associated Symptoms: denies: Nausea, Dyspnea, Diaphoresis Modifying Factors: None Exacerbating Factors: None Alleviating Factors: None Recent travel outside of the [place]: No Additional History Per: Family Past Medical History Reviewed: Historical Data, Nursing Documentation, Vital Signs Vital Signs: Last Vital Signs Temp 98.7 F 06/10/17 00:24 Pulse 102 H 06/10/17 00:24 Resp 20 06/10/17 00:24 BP 139/92 H 06/10/17 00:24 Pulse Ox 98 06/10/17 00:58 - Medical History PMH: No Chronic Diseases - e-Zassi Procedures D & C POST DELIVERY (11/01/12) Family History: States: No Known Family Hx - Social History Hx Alcohol Use: No Hx Substance Use: No - Immunization History Hx Tetanus Toxoid Vaccination: Yes Hx Influenza Vaccination: Yes Hx Pneumococcal Vaccination: Yes Review Of Systems Constitutional: Negative for: Fever, Chills ENT: Negative for: Throat Pain Cardiovascular: Positive for: Chest Pain (Dull and Aching; radiates to left arm and shoulder) Respiratory: Negative for: Shortness of Breath Gastrointestinal: Negative for: Nausea, Vomiting, Abdominal Pain Genitourinary: Negative for: Dysuria Musculoskeletal: Negative for: Back Pain Skin: Negative for: Rash Neurological: Negative for: Weakness, Numbness Psych: Negative for: Anxiety Physical Exam - Physical Exam Appears: Non-toxic Skin: Warm, Dry Head: Normacephalic Eye(s): bilateral: Normal Inspection Oral Mucosa: Moist Neck: Trachea Midline, Supple Chest: Symmetrical, No Tenderness Cardiovascular: Rhythm Regular Respiratory: No Rales, No Rhonchi, No Wheezing Gastrointestinal/Abdominal: Soft, No Tenderness, No Distention Back: No CVA Tenderness Extremity: Normal ROM, No Tenderness Extremity: Bilateral: Atraumatic, Normal Color And Temperature, Normal ROM Pulses: Left Dorsalis Pedis: Normal, Right Dorsalis Pedis: Normal Neurological/Psych: Oriented x3, Normal Speech, Normal Cognition Gait: Steady ED Course And Treatment - Laboratory Results Result Diagrams: 06/10/17 00:52 06/10/17 00:52 ECG: Interpreted By Me, Viewed By Me ECG Rhythm: Sinus Rhythm (94), Nonspecific Changes O2 Sat by Pulse Oximetry: 98 (Room air) Pulse Ox Interpretation: Normal - Radiology CXR: Interpreted by Me, Viewed By Me CXR Interpretation: No: Infiltrates, Fracture, Pnemothorax Progress Note: Administered Ecotrin. Ordered EKG, blood work and Urinalysis. Disposition Discussed With : Bronwyn Doherty Comment: accepted the pt on his service and took over the care at 1:42 AM Doctor Will See Patient In The: Hospital Counseled Patient/Family Regarding: Studies Performed, Diagnosis - Disposition Disposition: HOSPITALIZED Disposition Time: 00:10 Condition: FAIR Forms: [facility] (Y[place]i) - POA Present On Arrival: Poor Glycemic Control - Clinical Impression Clinical Impression: Chest pain - Scribe Statement The provider has reviewed the documentation as recorded by the Scribe Kobe Mendoza All medical record entries made by the Scribe were at my direction and personally dictated by me. I have reviewed the chart and agree that the record accurately reflects my personal performance of the history, physical exam, medical decision making, and the department course for this patient. I have also personally directed, reviewed, and agree with the discharge instructions and disposition. Decision To Admit - Pt Status Changed To: Hospital Disposition Of: Inpatient - Admit Certification Admit to Inpatient:: After my assessment, the patient will require hospitalization for at least two midnights. This is because of the severity of symptoms shown, intensity of services needed, and/or the medical risk in this patient being treated as an outpatient. - InPatient: Physician Admission Certification: I certify that this patient requires 2 or more midnights of care for the following reason:: After my assessment, the patient will require hospitalization for at least two midnights. This is because of the severity of symptoms shown, intensity of services needed, and/or the medical risk in this patient being treated as an outpatient. - . Bed Request Type: Telemetry Admitting Physician: Imer Doherty Patient Diagnosis: Chest pain
[2017-06-10] MEDS ORDERED: Aspirin 325 mg EC Tablets PO STA (00:33)
[2017-06-10] MEDS ORDERED: Aspirin 325 mg EC Tablets PO ONE (00:54)
[2017-06-10 00:55] LABS: BASO % 0.6 % (0.0-2.0); EOS # 0.1 K/uL (0.0-0.7); EOS % 1.6 % (0.0-4.0); HEMOGLOBIN 12.2 g/dL (11.0-16.0); LYMPH # 2.3 K/uL (1.0-4.3); LYMPH % 34.6 % (20.0-40.0); MEAN CELL VOLUME 81.4 fL (81.0-99.0); MEAN CORPUSCULAR HEMOGLOBIN 27.7 pg (27.0-31.0); MEAN PLATELET VOLUME 8.1 fL (7.2-11.7); MONO # 0.5 K/uL (0.0-0.8); MONO % 7.5 % (0.0-10.0); NEUT # 3.7 K/uL (1.8-7.0); NEUT % 55.7 % (50.0-75.0); RBC 4.4 Mil/uL (3.80-5.20); RED CELL DISTRIBUTION WIDTH 14.1 % (11.5-14.5); WHITE BLOOD COUNT 6.7 K/uL (4.8-10.8)
[2017-06-10 01:02] LABS: PROTHROMBIN TIME 11.6 SECONDS (9.7-12.2)
[2017-06-10 01:16] LABS: HCG,QUALITATIVE URINE NEGATIVE (NEGATIVE)
[2017-06-10 01:18] LABS: SQUAMOUS EPITHIAL 6 /hpf (0-5); URINE BILIRUBIN NEGATIVE (NEGATIVE); URINE BLOOD NEGATIVE (NEGATIVE); URINE CLARITY Clear (Clear); URINE COLOR Yellow (YELLOW); URINE GLUCOSE (UA) 2+ mg/dL (Normal); URINE LEUKOCYTE ESTERASE NEG Leu/uL (Negative); URINE NITRATE NEGATIVE (NEGATIVE); URINE PROTEIN NEGATIVE (NEGATIVE); URINE UROBILINOGEN NORMAL mg/dL (0.2-1.0)
[2017-06-10 01:32] LABS: ALB/GLOB RATIO 1.3 (1.0-2.1); ALBUMIN 3.9 g/dL (3.5-5.0); ALT/SGPT 24 U/L (9-52); AST/SGOT 15 U/L (14-36); BLOOD UREA NITROGEN 11 mg/dL (7-17); CALCIUM 8.8 mg/dl (8.6-10.4); GFR AFRICAN-AMERICAN > 60; GFR NON-AFRICAN AMERICAN > 60
[2017-06-10 09:45] LABS: CK-MB < 0.22 ng/mL (0.0-3.38)
[2017-06-10] MEDS: Enoxaparin 40 mg Syringe SC SCH (10:36)
[2017-06-10] MEDS: (Novolog) Insulin Aspart, Recombinant 100 u/ml 10 ml vial SC SCH ×3 (12:30→22:30)
--- NOTE | 2017-06-10 14:10 | CP.PCM.CON ---
History of Present Illness - History of Present Illness History of Present Illness: I was asked to evaluate patient for CP. Patient is a 37 year old female with PMH HTN SVT who presents with chest pain. Patient had a recent admission for SVT. Discharged on cardizem, develeoped chest pain at rest, associated dyspnea. The patient denies palpitiatons. She states symptoms persisted which was a cause for admission. She denies syncope. Review of Systems - Constitutional Constitutional: absent: As Per HPI, Anorexia, Chills, Daytime Sleepiness, Excessive Sweating, Fatigue, Fever, Frequent Falls, Headache, Increased Appetite , Lethargy, Malaise, Night Sweats, Snoring, Sleep Apnea, Weight Gain, Weight Loss, Weakness, Other - EENT Eyes: absent: As Per HPI, Blind Spots, Blurred Vision, Change in Vision, Decreased Night Vision, Diplopia, Discharge, Dry Eye, Exophthalmos, Floaters, Irritation, Itchy Eyes, Loss of Peripheral Vision, Pain, Photophobia, Requires Corrective Lenses, Sees Flashes, Spots in Vision, Tunnel Vision, Other Visual Disturbances, Loss of Vision, Other Ears: absent: As Per HPI, Decreased Hearing, Ear Discharge, Ear Pain, Tinnitus, Abnormal Hearing, Disequilibrium, Dizziness, Other Nose/Mouth/Throat: absent: As Per HPI, Epistaxis, Nasal Congestion, Nasal Discharge, Nasal Obstruction, Nasal Trauma, Nose Pain, Post Nasal Drip, Sinus Pain, Sinus Pressure, Bleeding Gums, Change in Voice, Dental Pain, Dry Mouth, Dysphagia, Halitosis, Hoarsness, Lip Swelling, Mouth Lesions, Mouth Pain, Odynophagia, Sore Throat, Throat Swelling, Tongue Swelling, Facial Pain, Neck Pain, Neck Mass, Other - Cardiovascular Cardiovascular: Chest Pain, Dyspnea - Respiratory Respiratory: absent: As Per HPI, Cough, Dyspnea, Hemoptysis, Dyspnea on Exertion , Wheezing, Snoring, Stridor, Pain on Inspiration, Chest Congestion, Excessive Mucous Production, Change in Mucous Color, Pain with Coughing, Other - Gastrointestinal Gastrointestinal: absent: As Per HPI, Abdominal Pain, Belching, Bloating, Change in Bowel Habits, Change in Stool Character, Coffee Ground Emesis, Constipation, Cramping, Diarrhea, Dyspepsia, Dysphagia, Early Satiety, Excessive Flatus, Fecal Incontinence, Heartburn, Hematemesis, Hematochezia, Loose Stools, Melena, Nausea, Odynophagia, Temesmus, Vomiting, Other - Genitourinary Genitourinary: absent: As Per HPI, Change in Urinary Stream, Difficulty Urinating, Dysuria, Flank Pain, Hematuria, Pyuria, Nocturia, Urinary Incontinence, Urinary Frequency, Urinary Hesitance, Urinary Urgency, Voiding Freq/Small Amts, Freq UTI, Hx Renal/Bladder Calculi, Hx /Renal Surgery, Bladder Distension, Other - Musculoskeletal Musculoskeletal: absent: As Per HPI, Abnormal Gait, Arthralgias, Atrophy, Back Pain, Deformity, Joint Swelling, Limited Range of Motion, Loss of Height, Muscle Cramps, Muscle Weakness, Myalgias, Neck Pain, Numbness, Radiating Pain into Limb, Stiffness, Tingling, Other - Integumentary Integumentary: absent: As Per HPI, Acne, Alopecia, Bleeding Lesions, Change in Hair, Change in Nails, Change in Pigmentation, Changing Lesions, Dry Skin, Erythema, Furuncle, Hirsutism, Lesions, New Lesions, Non-Healing Lesions, Photosensitivity, Pruritus, Rash, Skin Pain, Skin Ulcer, Sores, Striae, Swelling , Unusual Bruising, Wounds, Jaundice, Other - Neurological Neurological: absent: As Per HPI, Abnormal Gait, Abnormal Hearing, Abnormal Movements, Abnormal Speech, Behavioral Changes, Burning Sensations, Confusion, Convulsions, Disequilibrium, Dizziness, Numbness, Focal Weakness, Frequent Falls , Headaches, Lack of Coordination, Loss of Vision, Memory Loss, Paresthesias, Radicular Pain, Restless Legs, Sensory Deficit, Syncope, Tingling, Tremor, Vertigo, Weakness, Other Visual Disturbances, Other - Psychiatric Psychiatric: absent: As Per HPI, Abnormal Sleep Pattern, Anhedonia, Anxiety, Auditory Hallucinations, Behavioral Changes, Change in Appetite, Change in Libido, Confusion, Depression, Difficulty Concentrating, Hallucinations, Homicidal Ideation, Hopelessness, Irritability, Memory Loss, Mood Swings, Panic Attacks, Paranoia, Suicidal Ideation, Visual Hallucinations, Tactile Hallucinations, Other - Endocrine Endocrine: absent: As Per HPI, Change in Body Appearance, Change in Libido, Cold Intolorance, Deepening of Voice, Excessive Sweating, Fatigue, Flushing, Heat Intolorance, Increase in Ring/Shoe/Hat Size, Palpitations, Polydipsia, Polyphagia, Polyuria, Other - Hematologic/Lymphatic Hematologic: absent: As Per HPI, Easy Bleeding, Easy Bruising, Lymphadenopathy, Other Past Patient History - Infectious Disease Hx of Infectious Diseases: None - Past Medical History & Family History Past Medical History?: Yes - Past Social History Smoking Status: Never Smoked - CARDIAC Hx Hypertension: Yes - PULMONARY Hx Respiratory Disorders: No - NEUROLOGICAL Hx Neurological Disorder: No - HEENT Hx HEENT Problems: No - RENAL Hx Chronic Kidney Disease: No - ENDOCRINE/METABOLIC Hx Diabetes Mellitus Type 1: Yes - HEMATOLOGICAL/ONCOLOGICAL Hx Blood Disorders: No - INTEGUMENTARY Hx Dermatological Problems: No - MUSCULOSKELETAL/RHEUMATOLOGICAL Hx Musculoskeletal Disorders: No Hx Falls: No - GASTROINTESTINAL Hx Gastrointestinal Disorders: No - GENITOURINARY/GYNECOLOGICAL Hx Genitourinary Disorders: No - PSYCHIATRIC Hx Psychophysiologic Disorder: No Hx Substance Use: No - SURGICAL HISTORY Hx Surgeries: Yes Hx Section: Yes - ANESTHESIA Hx Anesthesia: Yes Hx Anesthesia Reactions: No Hx Malignant Hyperthermia: No Meds Allergies/Adverse Reactions: Allergies Allergy/AdvReac Type Severity Reaction Status Date / Time No Known Allergies Allergy Verified 06/10/17 00:10 - Medications Medications: Current Medications Diltiazem HCl (Cardizem) 120 mg PO DAILY [facility] Last Admin: 06/10/17 10:35 Dose: 120 mg Enoxaparin Sodium (Lovenox) 40 mg SC DAILY [facility] Last Admin: 06/10/17 10:36 Dose: 40 mg Insulin Aspart (Novolog) 0 unit SC [facility] PRN Reason: Protocol Last Admin: 06/10/17 12:30 Dose: Not Given Lisinopril (Zestril) 2.5 mg PO DAILY [facility] Last Admin: 06/10/17 11:38 Dose: 2.5 mg Metformin HCl (Glucophage) 1,000 mg PO BID [facility] Last Admin: 06/10/17 10:35 Dose: 1,000 mg Rosuvastatin Calcium (Crestor) 5 mg PO [facility] Physical Exam - Constitutional Appears: Non-toxic - Head Exam Head Exam: NORMAL INSPECTION - Eye Exam Eye Exam: Normal appearance - ENT Exam ENT Exam: Mucous Membranes Moist - Neck Exam Neck exam: Positive for: Full Rom - Respiratory Exam Respiratory Exam: NORMAL BREATHING PATTERN - Cardiovascular Exam Cardiovascular Exam: REGULAR RHYTHM - GI/Abdominal Exam GI & Abdominal Exam: Normal Bowel Sounds - Rectal Exam Rectal Exam: absent: Deferred - Extremities Exam Extremities exam: Positive for: pedal edema - Back Exam Back exam: NORMAL INSPECTION - Neurological Exam Neurological exam: Alert, Oriented x3 - Psychiatric Exam Psychiatric exam: Normal Affect - Skin Skin Exam: Normal Color Results - Vital Signs Recent Vital Signs: Last Vital Signs Temp 98.3 F 06/10/17 11:36 Pulse 92 H 06/10/17 12:00 Resp 20 06/10/17 11:36 BP 108/68 06/10/17 11:36 Pulse Ox 100 06/10/17 11:36 - Labs Result Diagrams: 06/10/17 00:52 06/10/17 00:52 Labs: Laboratory Results - last 24 hr 06/10/17 06/10/17 06/10/17 00:52 00:52 00:52 WBC 6.7 RBC 4.40 Hgb 12.2 Hct 35.8 MCV 81.4 MCH 27.7 MCHC 34.0 RDW 14.1 Plt Count 284 MPV 8.1 Neut % (Auto) 55.7 Lymph % (Auto) 34.6 [place] % (Auto) 7.5 Eos % (Auto) 1.6 Baso % (Auto) 0.6 Neut # 3.7 Lymph # 2.3 [place] # 0.5 Eos # 0.1 Baso # 0.0 PT 11.6 INR 1.0 APTT 34 Sodium 136 Potassium 3.8 Chloride 98 Carbon Dioxide 27 Anion Gap 16 BUN 11 Creatinine 0.7 Est GFR ( Amer) > 60 Est GFR (Non-Af Amer) > 60 POC Glucose (mg/dL) Random Glucose 179 H Calcium 8.8 Total Bilirubin 0.3 AST 15 ALT 24 Alkaline Phosphatase 100 Total Creatine Kinase CK-MB (Mass) Troponin I < 0.0120 Total Protein 7.0 Albumin 3.9 Globulin 3.1 Albumin/Globulin Ratio 1.3 Urine Color Urine Clarity Urine pH Ur Specific [place] Urine Protein Urine Glucose (UA) Urine Ketones Urine Blood Urine Nitrate Urine Bilirubin Urine Urobilinogen Ur Leukocyte Esterase Urine WBC (Auto) Urine RBC (Auto) Ur Squamous Epith Cells Urine HCG, Qual 06/10/17 06/10/17 06/10/17 01:05 08:33 08:50 WBC RBC Hgb Hct MCV MCH MCHC RDW Plt Count MPV Neut % (Auto) Lymph % (Auto) [place] % (Auto) Eos % (Auto) Baso % (Auto) Neut # Lymph # [place] # Eos # Baso # PT INR APTT Sodium Potassium Chloride Carbon Dioxide Anion Gap BUN Creatinine Est GFR ( Amer) Est GFR (Non-Af Amer) POC Glucose (mg/dL) 200 H Random Glucose Calcium Total Bilirubin AST ALT Alkaline Phosphatase Total Creatine Kinase 35 CK-MB (Mass) < 0.22 Troponin I < 0.0120 Total Protein Albumin Globulin Albumin/Globulin Ratio Urine Color Yellow Urine Clarity Clear Urine pH 6.0 Ur Specific [place]ector 1.023 Urine Protein Negative Urine Glucose (UA) 2+ H Urine Ketones Negative Urine Blood Negative Urine Nitrate Negative Urine Bilirubin Negative Urine Urobilinogen Normal Ur Leukocyte Esterase Neg Urine WBC (Auto) 1 Urine RBC (Auto) 1 Ur Squamous Epith Cells 6 H Urine HCG, Qual Negative 06/10/17 12:24 WBC RBC Hgb Hct MCV MCH MCHC RDW Plt Count MPV Neut % (Auto) Lymph % (Auto) [place] % (Auto) Eos % (Auto) Baso % (Auto) Neut # Lymph # [place] # Eos # Baso # PT INR APTT Sodium Potassium Chloride Carbon Dioxide Anion Gap BUN Creatinine Est GFR ( Amer) Est GFR (Non-Af Amer) POC Glucose (mg/dL) 146 H Random Glucose Calcium Total Bilirubin AST ALT Alkaline Phosphatase Total Creatine Kinase CK-MB (Mass) Troponin I Total Protein Albumin Globulin Albumin/Globulin Ratio Urine Color Urine Clarity Urine pH Ur Specific [place]ector Urine Protein Urine Glucose (UA) Urine Ketones Urine Blood Urine Nitrate Urine Bilirubin Urine Urobilinogen Ur Leukocyte Esterase Urine WBC (Auto) Urine RBC (Auto) Ur Squamous Epith Cells Urine HCG, Qual - EKG Data EKG Interpreted by: Myself EKG shows normal: Sinus rhythm Assessment & Plan (1) Chest pain Assessment and Plan: patient has ruled out for SD. Recommend echocardiogram in am to assess LV function. Status: Acute (2) SVT (supraventricular tachycardia) Assessment and Plan: continue cardizem. will schedule outpatient ablation. Status: Acute
[2017-06-10 18:39] LABS: CK-MB < 0.22 ng/mL (0.0-3.38)
[2017-06-11 01:54] VITALS: RESP 20
--- NOTE | 2017-06-11 08:07 | CP.PCM.PN ---
Subjective - Date & Time of Evaluation Date of Evaluation: 06/11/17 Time of Evaluation: 09:45 - Subjective Subjective: note: Patient seen in room. She is feeling better today, denies chest pain, palpitations, shortness of breath, fever, chills, nausea or vomiting. Objective - Vital Signs/Intake and Output Vital Signs (last 24 hours): Temp Pulse Resp BP Pulse Ox 98 F 77 20 105/66 97 06/11/17 04:22 06/11/17 04:22 06/11/17 04:22 06/11/17 04:22 06/11/17 04:22 Intake and Output: 06/11/17 06/11/17 06:59 18:59 Intake Total 240 Balance 240 - Medications Medications: Current Medications Diltiazem HCl (Cardizem) 120 mg PO DAILY [facility] Last Admin: 06/10/17 10:35 Dose: 120 mg Enoxaparin Sodium (Lovenox) 40 mg SC DAILY [facility] Last Admin: 06/10/17 10:36 Dose: 40 mg Insulin Aspart (Novolog) 0 unit SC [facility] PRN Reason: Protocol Last Admin: 06/10/17 22:30 Dose: Not Given Lisinopril (Zestril) 2.5 mg PO DAILY [facility] Last Admin: 06/10/17 11:38 Dose: 2.5 mg Metformin HCl (Glucophage) 1,000 mg PO BID [facility] Last Admin: 06/10/17 17:43 Dose: 1,000 mg Rosuvastatin Calcium (Crestor) 5 mg PO [facility] Last Admin: 06/10/17 22:20 Dose: 5 mg - Labs Labs: 06/10/17 00:52 06/10/17 00:52 PT 11.6 SECONDS (9.7-12.2) 06/10/17 00:52 INR 1.0 06/10/17 00:52 APTT 34 SECONDS (21-34) 06/10/17 00:52 - Constitutional Appears: Non-toxic, No Acute Distress - Eye Exam Eye Exam: Normal appearance - Respiratory Exam Respiratory Exam: Clear to Ausculation Bilateral. absent: Rales, Rhonchi, Wheezes - Cardiovascular Exam Cardiovascular Exam: REGULAR RHYTHM, RRR, +S1, +S2. absent: Gallop, Rubs - GI/Abdominal Exam GI & Abdominal Exam: Soft, Normal Bowel Sounds. absent: Tenderness - Extremities Exam Extremities Exam: Normal Inspection. absent: Calf Tenderness, Pedal Edema - Back Exam Back Exam: NORMAL INSPECTION - Psychiatric Exam Psychiatric exam: Normal Affect, Normal Mood - Skin Skin Exam: Normal Color Assessment and Plan (1) Chest pain Assessment & Plan: Citlalli negative x3, Dr. Rodriguez consulted, an echo was preformed. Patient was discharged home to continue her home medications. She will follow up with after discharge. Status: Acute (2) Diabetes Assessment & Plan: discharged home, continue Metformin. Status: Acute (3) SVT (supraventricular tachycardia) Assessment & Plan: Continue Cardizem. Status: Acute (4) Prophylactic measure Status: Acute
[2017-06-11] MEDS: (Novolog) Insulin Aspart, Recombinant 100 u/ml 10 ml vial SC SCH ×2 (08:26→12:28)
[2017-06-11] MEDS: Enoxaparin 40 mg Syringe SC SCH (10:45)
--- NOTE | 2017-06-11 11:29 | HP ---
HISTORY OF PRESENT ILLNESS: This is a 37-year-old female who was complaining of chest pain, shortness of breath,and cardiac arrhythmia. The patient came to the ER for admission. PHYSICAL EXAMINATION: GENERAL: Patient is awake, alert, and oriented. VITAL SIGNS: Temperature is , pulse . HEENT: Within normal limits. NECK: Supple. CHEST: Symmetrical. HEART: Regular. ABDOMEN: Soft. EXTREMITIES: No edema. Patient suffers from chest pain, cardiac arrhythmia. The patient gets bedrest, supportive care. Bronwyn Obando MD
[2017-06-11 14:46] VITALS: BP 109/71; PULSE 88; TEMP 98.4; O2SAT 100
--- NOTE | 2017-06-11 23:55 | CARD ---
APPROVED REPORT EKG Measurement Heart [id number] <Conclusion> Normal sinus rhythm Normal ECG
--- NOTE | 2017-06-12 00:20 | CARD ---
APPROVED REPORT EXAM: Two-dimensional and M-mode echocardiogram with Doppler and color Doppler. Other Information Quality : GoodRhythm : INDICATION Chest Pain SVT RISK FACTORS Diabetes 2D DIMENSIONS IVSd0.8 (0.7-1.1cm)LVDd4.2 (3.9-5.9cm) PWd0.7 (0.7-1.1cm)LVDs1.9 (2.5-4.0cm) FS (%) 53.4 %LVEF (%)84.7 (>50%) M-Mode DIMENSIONS Left Atrium (MM)3.01 (2.5-4.0cm)Aortic Root2.95 (2.2-3.7cm) Aortic Cusp Exc.1.97 (1.5-2.0cm) Mitral Valve MV E Afdiwprc197.2cm/sMV A Odcpyxgj00.8cm/sE/A ratio1.1 TDI E/Lateral E'0.0E/Medial E'0.0 Tricuspid Valve TR Peak [id number]/sTR Peak [id number] LEFT VENTRICLE The left ventricle is normal size. There is normal left ventricular wall thickness. Left ventricle systolic function is normal. The Ejection Fraction is >70%. There is normal LV segmental wall motion. The left ventricular diastolic function is normal. No left ventricle thrombus noted on this study. There is no ventricular septal defect visualized. RIGHT VENTRICLE The right ventricle is normal size. The right ventricular systolic function is normal. ATRIA The left atrium size is normal. The right atrium size is normal. AORTIC VALVE The aortic valve is mildly sclerotic. The aortic valve is trileaflet. No aortic regurgitation is present. There is no aortic valvular stenosis. There is no aortic valvular vegetation. MITRAL VALVE Mitral annular calcification is mild. There is no evidence of mitral valve prolapse. There is no mitral valve stenosis. There is no mitral valve regurgitation noted. TRICUSPID VALVE The tricuspid valve is normal in structure. There is trace to mild tricuspid regurgitation. Right ventricular systolic pressure is estimated at less than 30 mmHg. There is no pulmonary hypertension. There is no tricuspid valve prolapse or vegetation. There is no tricuspid valve stenosis. PULMONIC VALVE The pulmonary valve is normal in structure. There is trace to mild pulmonic valvular regurgitation. There is no pulmonic valvular stenosis. GREAT VESSELS The aortic root is normal in size. The IVC is normal in size and collapses >50% with inspiration. PERICARDIAL EFFUSION There is no pericardial effusion. There is no pleural effusion. <Conclusion> The left ventricle is normal size. Left ventricle systolic function is normal. The Ejection Fraction is >70%. The left ventricular diastolic function is normal. The right ventricle is normal size. The left atrium size is normal. The right atrium size is normal. There is trace to mild tricuspid regurgitation. There is trace to mild pulmonic valvular regurgitation.
== END 2017-06-11 14:23 | disposition home or self-care (01) | DRG 143 ==
LOC: C.ER 00:02 → C.9E 01:41 → C.6T 03:10
PROVIDERS: ADMIT Internal Medicine Pulmonary Disease; ATTEND Internal Medicine Pulmonary Disease
DX: R07.89 Other chest pain (principal); I47.1 Supraventricular tachycardia; E11.9 Type 2 diabetes mellitus without complications

== ENCOUNTER 2017-08-12 01:10 | Emergency (ER) | payer MEDICAID ==
[2017-08-12 01:34] VITALS: BP 113/77; PULSE 113; RESP 18; TEMP 99.3; O2SAT 98
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
== END 2017-08-12 03:24 | disposition home or self-care (01) ==
LOC: C.ER 01:10
DX: S00.83XA Contusion of other part of head, initial encounter (principal); Y04.0XXA Assault by unarmed brawl or fight, initial encounter; I10 Essential (primary) hypertension

== ENCOUNTER 2017-11-18 15:08 | Emergency (ER) | payer MEDICAID ==
[2017-11-18 15:13] VITALS: O2SAT 99
[2017-11-18 15:36] LABS: SQUAMOUS EPITHIAL 7 /hpf (0-5); URINE BACTERIA RARE (<OCC); URINE BILIRUBIN NEGATIVE (NEGATIVE); URINE BLOOD NEGATIVE (NEGATIVE); URINE CLARITY Clear (Clear); URINE COLOR Yellow (YELLOW); URINE GLUCOSE (UA) NORMAL (Normal); URINE LEUKOCYTE ESTERASE NEG Leu/uL (Negative); URINE PROTEIN NEGATIVE (NEGATIVE); URINE UROBILINOGEN NORMAL mg/dL (0.2-1.0)
--- NOTE | 2017-11-18 15:50 | C.PDOC ---
History Of Present Illness 37 year old female presents to the emergency department with complaints of new onset right lower back pain for the last 6 days. Patient reports that her pain radiates down to her right buttock and posterior thigh, and is worse with standing upright. Patient denies trauma, weakness, and numbness. Patient reports that she has not tried any pain medications to date. She reports positive dysuria, but denies polyuria, fever, nausea, and vomiting. NEW ONSET R LBP X 6 DAYS. RADIATION R BUTTOCK/POS THIGH. WORSE W STANDING UPRIGHT. NO TRAUMA, WEAK/NUMB. NO PAIN MEDS TRIED. +DYSURIA NO POLYURIA, FEVER NV EXAM NAD NONTOXIC BACK LIMTIED FULL EXTENSION DUE TO PAIN. NONTEND, NO SPASM. NO LS TEND. NO CVAT NEURO INTACT CV RRR SINUS TACHY REMAIDNER NEG MDM PS HO SVT W ABLATION 07/2017, STATES HAS CHRONIC SINUS TACHYCARDIA. NO CP, SOB, DIZZY Time Seen by Provider: 11/18/17 15:21 Chief Complaint (Nursing): Back Pain History Per: Patient History/Exam Limitations: no limitations Onset/Duration Of Symptoms: Days (6) Quality Of Discomfort: "Pain" Previous Symptoms: Back Pain Exacerbating Factor(s): Standing Past Medical History Reviewed: Historical Data, Nursing Documentation, Vital Signs Vital Signs: Last Vital Signs Temp 98.1 F 11/18/17 16:00 Pulse 101 H 11/18/17 16:00 Resp 18 11/18/17 16:00 BP 138/83 11/18/17 16:00 Pulse Ox 99 11/18/17 16:04 - Medical History PMH: HTN Denies: Chronic Kidney Disease Surgical History: No Surg Hx - [facility] Procedures D & C POST DELIVERY (11/01/12) Family History: States: No Known Family Hx - Social History Hx Alcohol Use: No Hx Substance Use: No - Immunization History Hx Tetanus Toxoid Vaccination: Yes Hx Influenza Vaccination: No Hx Pneumococcal Vaccination: Yes Review Of Systems Except As Marked, All Systems Reviewed And Found Negative. Constitutional: Negative for: Fever Gastrointestinal: Negative for: Nausea, Vomiting Genitourinary: Positive for: Dysuria. Negative for: Other (polyuria) Musculoskeletal: Positive for: Back Pain, Leg Pain Neurological: Negative for: Weakness, Numbness Physical Exam - Physical Exam Appears: Non-toxic, No Acute Distress Skin: Warm, Dry Head: Atraumatic, Normacephalic Eye(s): bilateral: Normal Inspection Nose: Normal Neck: Normal Chest: Symmetrical Cardiovascular: Rhythm Regular (sinus tachycardia), No Murmur Respiratory: Normal Breath Sounds, No Rales, No Rhonchi, No Wheezing Gastrointestinal/Abdominal: Normal Exam, Soft, No Tenderness Back: Normal Inspection, No CVA Tenderness, No Vertebral Tenderness, Decreased ROM (limited full extension), No Paraspinal Tenderness Neurological/Psych: Oriented x3, Normal Speech, Normal Cognition, Other (no focal deficits) ED Course And Treatment O2 Sat by Pulse Oximetry: 99 (RA) Pulse Ox Interpretation: Normal Progress Note: Plan: Decadron 12mg PO. Motrin 600mg PO. Neurontin 300mg PO. Tylenol 975mg PO. Urine Culture. POC Test. Urinalysis Medical Decision Making Medical Decision Making: Patient states a history of SVT with ablation in July of 2017. Patient states she has chronic sinus tachycardia, no chest pain, shortness of breath, or dizziness. Disposition Counseled Patient/Family Regarding: Studies Performed, Diagnosis, Need For Followup, Rx Given - Disposition Referrals: [facility] [Outside] YOUR,PMD [Other] Disposition: HOME/ ROUTINE Disposition Time: 15:50 Condition: IMPROVED Prescriptions: Acetaminophen [Tylenol Extra Strength] 2 tab PO Q6 #30 tablet Cyclobenzaprine [Flexeril] 10 mg PO TID #15 tab Gabapentin [Neurontin] 300 mg PO TID #30 cap Ibuprofen [Motrin] 600 mg PO Q6 #30 tab Phenazopyridine HCl [Pyridium] 200 mg PO BID #6 tablet Instructions: Sciatica (DC), Dysuria, Adult (DC) Forms: [employer] ([place] Islander) - Clinical Impression Clinical Impression: Sciatica, Dysuria - Scribe Statement The provider has reviewed the documentation as recorded by the Scribe (Dov Arevalo) Provider Attestation: all medical record entries made by the Scribe were at my direction and personally dictated by me. I have reviewed the chart and agree that the record accurately reflects my personal performance of the history, physical exam, medical decision making, and the department course for this patient. I have also personally directed, reviewed, and agree with the discharge instructions and disposition.
[2017-11-18 16:12] VITALS: BP 138/83; PULSE 101; RESP 18; TEMP 98.1
== END 2017-11-18 16:13 | disposition home or self-care (01) ==
LOC: C.ER 15:08
DX: R30.0 Dysuria (principal); M54.30 Sciatica, unspecified side; I10 Essential (primary) hypertension
CPT/HCPCS: 81001; 87086; 99285; J8540

== ENCOUNTER 2018-07-23 15:15 | Emergency (ER) | payer MEDICAID ==
[2018-07-23 16:02] VITALS: RESP 18
--- NOTE | 2018-07-23 16:17 | C.PDOC ---
History Of Present Illness 38 y/o F c PMHx SVT s/p ablation, DM p/w R sided pelvic pain x 1 month, intermittent, sharp, worse in the last day, more severe. Denies nausea, vomiting, vaginal bleeding, dysuria, vaginal discharge. Time Seen by Provider: 07/23/18 16:02 Chief Complaint (Nursing): Abdominal Pain History Per: Patient Onset/Duration Of Symptoms: Days Current Symptoms Are (Timing): Worse Past Medical History Reviewed: Historical Data, Nursing Documentation, Vital Signs Vital Signs: Last Vital Signs Temp 97.9 F 07/23/18 15:57 Pulse 96 H 07/23/18 15:57 Resp 18 07/23/18 15:57 BP 145/89 07/23/18 15:57 Pulse Ox 99 07/23/18 15:57 - Medical History PMH: HTN Denies: Chronic Kidney Disease - [facility] Procedures D & C POST DELIVERY (11/01/12) Family History: States: Unknown Family Hx - Social History Hx Alcohol Use: No Hx Substance Use: No - Immunization History Hx Tetanus Toxoid Vaccination: No Hx Influenza Vaccination: Yes Hx Pneumococcal Vaccination: No Review Of Systems Except As Marked, All Systems Reviewed And Found Negative. Constitutional: Negative for: Fever Cardiovascular: Negative for: Chest Pain Physical Exam - Physical Exam Additional Physical Exam Comments: Constitutional: No acute distress. Head: Normocephalic. Atraumatic. Eyes: PERRL. ENT: Moist mucous membranes. Neck: Supple. Cardiovascular: Regular rate. Radial pulse 2+ bilaterally. Chest: No tenderness. Respiratory: Clear to auscultation bilaterally. GI: Soft. Right adnexal tenderness. No tenderness at McBurney's point. Back: No CVA tenderness. Musculoskeletal: No tenderness or swelling of extremities. Skin: No rash. Neurologic: Alert, no focal deficit. ED Course And Treatment - Laboratory Results Result Diagrams: 07/23/18 16:33 07/23/18 16:33 O2 Sat by Pulse Oximetry: 99 (RA) Pulse Ox Interpretation: Normal Medical Decision Making Medical Decision Making: Declined analgesia. IMPRESSION: 1. 1.5 x 1.6 x 1.8 cm anterior fundal subserosal fibroid and 1.2 x 1.0 x 0.9 cm anterior wall submucosal fibroid. 2. 1.9 x 2.1 x 2.1 cm complicated/hemorrhagic cyst in the right ovary. No evidence for torsion. Discharged home, NSAIDs, f/u [facility], return to ED for worsening pain, vomiting, or any other problem. Disposition - Disposition Disposition: HOME/ ROUTINE Disposition Time: 18:39 Condition: STABLE Instructions: Ovarian Cysts Forms: [employer] (Italian) - Clinical Impression Clinical Impression: Ovarian cyst
[2018-07-23 16:41] LABS: BASO % 0.6 % (0.0-2.0); EOS # 0.1 K/uL (0.0-0.7); EOS % 1.6 % (0.0-4.0); HEMOGLOBIN 12.3 g/dL (11.0-16.0); LYMPH # 2.3 K/uL (1.0-4.3); LYMPH % 42.3 % (20.0-40.0); MEAN CELL VOLUME 81.4 fL (81.0-99.0); MEAN CORPUSCULAR HEMOGLOBIN 26.5 pg (27.0-31.0); MEAN CORPUSCULAR HGB CONC 32.6 g/dL (33.0-37.0); MONO # 0.4 K/uL (0.0-0.8); MONO % 7.3 % (0.0-10.0); NEUT # 2.6 K/uL (1.8-7.0); NEUT % 48.2 % (50.0-75.0); NRBC % 0.1 % (0.0-2.0); RBC 4.64 Mil/uL (3.80-5.20); RED CELL DISTRIBUTION WIDTH 13.9 % (11.5-14.5); WHITE BLOOD COUNT 5.5 K/uL (4.8-10.8)
[2018-07-23 16:48] LABS: SQUAMOUS EPITHIAL 3 /hpf (0-5); URINE BILIRUBIN NEGATIVE (NEGATIVE); URINE BLOOD NEGATIVE (NEGATIVE); URINE CLARITY Hazy (Clear); URINE COLOR Yellow (YELLOW); URINE GLUCOSE (UA) NORMAL (Normal); URINE LEUKOCYTE ESTERASE NEG Leu/uL (Negative); URINE PROTEIN NEGATIVE (NEGATIVE); URINE UROBILINOGEN NORMAL mg/dL (0.2-1.0)
[2018-07-23 16:51] LABS: HCG,QUALITATIVE URINE NEGATIVE (NEGATIVE)
[2018-07-23 16:59] LABS: ALB/GLOB RATIO 1.5 (1.0-2.1); ALBUMIN 4.6 g/dL (3.5-5.0); ALT/SGPT 8 U/L (9-52); AST/SGOT 14 U/L (14-36); BLOOD UREA NITROGEN 15 mg/dL (7-17); CALCIUM 8.5 mg/dl (8.6-10.4); GFR NON-AFRICAN AMERICAN > 60
--- NOTE | 2018-07-23 18:39 | US ---
Date of service: 07/23/2018 HISTORY: R pelvic pain, cyst vs torsion COMPARISON: None available. TECHNIQUE: Transabdominal and transvaginal pelvic ultrasound was performed. FINDINGS: UTERUS: Measures 10.7 x 4.2 x 6.0 cm. Anteverted and enlarged. There is a 1.5 x 1.6 x 1.8 cm anterior fundal subserosal fibroid and 1.2 x 1.0 x 0.9 cm anterior wall submucosal fibroid. ENDOMETRIUM: Measures 10.1 mm in diameter. Unremarkable. CERVIX: No cervical abnormality identified. RIGHT OVARY: Measures 2.9 x 2.5 x 2.7 cm. No solid mass. Normal flow. There is a 1.9 x 2.1 x 2.1 cm complicated/hemorrhagic cyst. LEFT OVARY: Measures 1.9 x 1.0 x 2.3 cm. No solid mass. Normal flow. FREE FLUID: No significant free fluid noted. OTHER FINDINGS: None. IMPRESSION: 1. 1.5 x 1.6 x 1.8 cm anterior fundal subserosal fibroid and 1.2 x 1.0 x 0.9 cm anterior wall submucosal fibroid. 2. 1.9 x 2.1 x 2.1 cm complicated/hemorrhagic cyst in the right ovary. No evidence for torsion.
[2018-07-23 18:56] VITALS: BP 113/74; PULSE 81; TEMP 98; O2SAT 100
== END 2018-07-23 19:19 | disposition home or self-care (01) ==
LOC: C.ER 15:15
DX: N83.201 Unspecified ovarian cyst, right side (principal); I10 Essential (primary) hypertension; E11.9 Type 2 diabetes mellitus without complications